=== PATIENT | male | born 1970 | race African-American/Black ===

== ENCOUNTER 2018-11-29 19:45 | Emergency (ER) | payer MEDICAID, OTHER ==
[~2018-11-29] VITALS: Ht 185.4 cm; Wt 74.8 kg
--- NOTE | 2018-11-29 20:37 | NUR ---
BIBSELF C/O DIFFICULTY BREATHING X1 WEEK. +CHEST TIGHTNESS. HX INDIRA USES NEB AT HOME, RAN OUT OF MEDICINE. NO OTHER COMPLAINTS AT THIS TIME. ER BED 7, MADE COMFORTABLE AND READY FOR EVAL.
[2018-11-29] MEDS ORDERED: ALBUTEROL FS 2.5 MG/3 ML VIAL.NEB ONE (20:54)
[2018-11-29] MEDS ORDERED: IPRATROPIUM NEB FS 0.5 MG/2.5 ML AMPUL.NEB ONE (20:54)
[2018-11-29] MEDS ORDERED: IPRATROPIUM NEB FS 0.5 MG/2.5 ML AMPUL.NEB NEB ONE (21:00)
[2018-11-29] MEDS ORDERED: predniSONE 20 MG TABLET PO ONE (21:00)
[2018-11-29] MEDS ORDERED: ALBUTEROL FS 2.5 MG/3 ML VIAL.NEB NEB ONE (21:00)
[2018-11-29] MEDS ORDERED: predniSONE 20 MG TABLET ONE (21:22)
[2018-11-29] MEDS ORDERED: IBUPROFEN 600 MG TABLET PO ONE ×2 (21:53→22:00)
--- NOTE | 2018-11-29 21:56 | NUR ---
Patient discharged to home in stable condition. Written and verbal after care instructions given. Patient verbalizes understanding of instruction.
[2018-11-29 22:09] VITALS: BP 141/96
== END 2018-11-29 21:56 | disposition home or self-care (01) ==
LOC: ER 19:47
DX: J45.901 Unspecified asthma with (acute) exacerbation (principal); M54.5 Low back pain; Z98.890 Other specified postprocedural states
CPT/HCPCS: 94640; 99283; J7512

== ENCOUNTER 2019-12-21 01:06 | Emergency (ER) | payer SELFPAY ==
[~2019-12-21] VITALS: Ht 185.4 cm; Wt 81.6 kg
--- NOTE | 2019-12-21 01:29 | NUR ---
PT PRESENTED TO THE ER WITH A C/O MIGRAINE [place] AND ASTHMA ATTACK. PT AMBULATED TO ER 6 WITH A SLOW STEADY GAIT. PT STATED THAT HIS MIGRAINE IS BAD BECAUSE HE "OVERUSED HIS INHALER". PT HAS WHEEZES ON THE LEFT AND DIMINISHED BS ON THE RIGHT. PT IS TRIPODING AND SATURATING AT 94% ON RA. OVERHEAD LIGHTS WERE TURNED OFF AND PT WAS PLACED ON THE MONITOR AND CONTINUOUS PULSE OX. PT REC'D WARM BLANKETS AND HOB IS AT 45 DEGREES.
--- NOTE | 2019-12-21 01:43 | NUR ---
DR MARROQUIN IS AT THE BEDSIDE.
[2019-12-21] MEDS ORDERED: ALBUTEROL FS 2.5 MG/3 ML VIAL.NEB NEB ONE ×2 (02:00→04:00)
[2019-12-21] MEDS ORDERED: IBUPROFEN 400 MG TABLET PO ONE (02:00)
[2019-12-21] MEDS ORDERED: ONDANSETRON 4 MG TAB.RAPDIS SL ONE (02:00)
[2019-12-21] MEDS ORDERED: HYDROMORPHONE 1 MG/1 ML DISP.SYRIN IM ONE (02:00)
[2019-12-21] MEDS ORDERED: IPRATROPIUM NEB FS 0.5 MG/2.5 ML AMPUL.NEB NEB ONE (02:00)
[2019-12-21] MEDS ORDERED: LORAZEPAM 1 MG TABLET PO ONE (02:00)
[2019-12-21] MEDS ORDERED: DEXAMETHASONE SOD PHOSPHATE 10 MG/ML VIAL IM ONE (02:00)
[2019-12-21] MEDS ORDERED: IPRATROPIUM NEB FS 0.5 MG/2.5 ML AMPUL.NEB ONE (02:01)
[2019-12-21] MEDS ORDERED: ALBUTEROL FS 2.5 MG/3 ML VIAL.NEB ONE ×2 (02:01→03:46)
[2019-12-21] MEDS ORDERED: HYDROMORPHONE 1 MG/1 ML DISP.SYRIN ONE (02:03)
[2019-12-21] MEDS ORDERED: DEXAMETHASONE SOD PHOSPHATE 10 MG/ML VIAL ONE (02:03)
[2019-12-21] MEDS ORDERED: IBUPROFEN 400 MG TABLET ONE (02:03)
[2019-12-21] MEDS ORDERED: LORAZEPAM 1 MG TABLET ONE (02:03)
[2019-12-21] MEDS ORDERED: ONDANSETRON 4 MG TAB.RAPDIS ONE (02:04)
--- NOTE | 2019-12-21 02:05 | NUR ---
BREATHING TX STARTED.
--- NOTE | 2019-12-21 02:05 | NUR ---
PT REC'D MEDICATION ORDERED.
--- NOTE | 2019-12-21 03:30 | NUR ---
PT STATED THAT HE WANTED ANOTHER BREATHING TX AND TO WAIT A LITTLE BIT AFTERWARDS. NOTIFIED.
--- NOTE | 2019-12-21 03:49 | NUR ---
PT REC'D A BREATHING TX.
--- NOTE | 2019-12-21 04:05 | NUR ---
BREATHING TX FINISHED.
--- NOTE | 2019-12-21 04:46 | NUR ---
PT APPEARS TO BE SLEEPING SOUNDLY. VSS.
--- NOTE | 2019-12-21 04:54 | NUR ---
Patient discharged to home in stable condition. Written and verbal after care instructions given. Patient verbalizes understanding of instruction AND RX. PT ASKED IF HE COULD HAVE "10 MINS TO GATHER HIMSELF".PT'S O2 SAT WAS 97% ON RA. PT'S VSS. PT AMBULATED TO THE BATHROOM WITH A STEADY GAIT. PT THEN AMBULATED BACK TO ER 6, COLLECTED HIS BELONGINGS AND LEFT. VSS. PT STATED THAT SOMEONE WAS GOING TO COLLECT HIM AND TAKE HIM HOME.
--- NOTE | 2019-12-21 05:05 | NUR ---
PT RETURNED TO THE NURSE'S STATION AND ASKED WHERE THE RX FOR ATIVAN WAS. PT WAS SHOWED WHERE THE PRESCRIPTIONS WERE. PT THEN ASKED FOR ANOTHER PRESCRIPTION FOR ALBUTEROL NEB SOLUTION. DR MARROQUIN SPOKE TO THE PT AND A NEW RX WAS GIVEN TO THE PT. PT AMBULATED OUT WITH A STEADY GAIT.
[2019-12-21 05:48] VITALS: BP 135/93
== END 2019-12-21 05:50 | disposition home or self-care (01) ==
LOC: ER 01:06
DX: J98.01 Acute bronchospasm (principal); G43.909 Migraine, unspecified, not intractable, without status migrainosus; F41.9 Anxiety disorder, unspecified; M79.7 Fibromyalgia; M81.0 Age-related osteoporosis without current pathological fracture; G47.00 Insomnia, unspecified; Z98.890 Other specified postprocedural states; Z60.2 Problems related to living alone; Z87.891 Personal history of nicotine dependence
CPT/HCPCS: 94640 ×2; 94799; 96372 ×2; 99285; J1100; J1170; Q0162

== ENCOUNTER 2019-12-23 00:18 | Emergency (ER) | payer SELFPAY ==
[~2019-12-23] VITALS: Ht 185.4 cm; Wt 81.6 kg
--- NOTE | 2019-12-23 00:43 | NUR ---
RT CALLED FOR BREATHING TREATMENT
[2019-12-23] MEDS ORDERED: ALBUTEROL FS 2.5 MG/0.5 ML VIAL.NEB NEB ONE (01:00)
[2019-12-23] MEDS ORDERED: ALBUTEROL FS 2.5 MG/0.5 ML VIAL.NEB ONE (01:06)
--- NOTE | 2019-12-23 01:34 | NUR ---
AWAITING BREATHING TREATMENT TO FINISH
[2019-12-23] MEDS ORDERED: ACETAMINOPHEN ES 500 MG TABLET ONE (01:43)
--- NOTE | 2019-12-23 01:50 | NUR ---
Patient discharged to home in stable condition. Written and verbal after care instructions given. Patient verbalizes understanding of instruction.
[2019-12-23] MEDS ORDERED: ACETAMINOPHEN 325 MG TABLET PO ONE (02:00)
[2019-12-23 02:35] VITALS: BP 123/74
== END 2019-12-23 01:35 | disposition home or self-care (01) ==
LOC: ER 00:18
DX: J45.909 Unspecified asthma, uncomplicated (principal); M79.7 Fibromyalgia; G43.909 Migraine, unspecified, not intractable, without status migrainosus; G47.00 Insomnia, unspecified; Z96.649 Presence of unspecified artificial hip joint; Z98.890 Other specified postprocedural states; Z60.2 Problems related to living alone
CPT/HCPCS: 94799-TC

== ENCOUNTER 2020-01-14 17:36 | Emergency (ER) | payer SELFPAY ==
[~2020-01-14] VITALS: Ht 185.4 cm; Wt 86.2 kg
--- NOTE | 2020-01-14 18:00 | NUR ---
asthma attack since last night, "i have chest tightness". PT AAOX4, VSS, RR EVEN & UNLABORED. DENIES CP, SOB, DIZZINESS, N/V, WEAKNESS AT THIS TIME. AWAITING EVAL BY [facility]. WILL CONT TO MONITOR.
[2020-01-14] MEDS ORDERED: DEXAMETHASONE SOD PHOSPHATE 10 MG/ML VIAL ONE (18:16)
[2020-01-14] MEDS: DEXAMETHASONE SOD PHOSPHATE 4 MG/ML VIAL IM ONE (18:24)
--- NOTE | 2020-01-14 19:23 | NUR ---
Patient discharged to home in stable condition. Written and verbal after care instructions given. Patient verbalizes understanding of instruction.
[2020-01-14 19:24] VITALS: BP 120/78
== END 2020-01-14 19:24 | disposition home or self-care (01) ==
LOC: ER 17:36
DX: J45.909 Unspecified asthma, uncomplicated (principal); Z96.649 Presence of unspecified artificial hip joint; F17.200 Nicotine dependence, unspecified, uncomplicated; M79.7 Fibromyalgia; F41.9 Anxiety disorder, unspecified; Z20.828 Contact with and (suspected) exposure to other viral communicable diseases
CPT/HCPCS: 71045; 96372; 99284; C9803; J1100; U0003

== ENCOUNTER 2020-01-29 10:02 | Emergency (ER) | payer BC, SELFPAY ==
[~2020-01-29] VITALS: Ht 185.4 cm; Wt 83.9 kg
--- NOTE | 2020-01-29 10:13 | NUR ---
came in for chest pain, sharp, since friday 01/12 pain scale, radiating to left arm. to er bed 10, hooked to monitor, changed to hosp gown, warm blanket provided, patient aao X 4, breathing even and unlabored. Dr Jackson at bedside
--- NOTE | 2020-01-29 10:32 | NUR ---
mechatronics technologist at bedside
[2020-01-29 10:38] LABS: BASOPHILS # (AUTO) 0.1 /CMM (0.0-0.2); BASOPHILS % (AUTO) 0.8 % (0.0-2.0); EOSINOPHILS % (AUTO) 2.8 % (0.0-6.0); HEMATOCRIT 44 % (39-51); HEMOGLOBIN 14.3 g/dL (13.5-17.5); LYMPHOCYTES # (AUTO) 1.3 /CMM (0.8-4.8); LYMPHOCYTES % (AUTO) 13.4 % (20.0-44.0); MEAN CORPUSCULAR HGB CONC 33 g/dl (31.0-36.0); MEAN CORPUSCULAR VOLUME 89 fL (80-96); MONOCYTES # (AUTO) 0.6 /CMM (0.1-1.30); MONOCYTES % (AUTO) 5.9 % (2.0-12.0); NEUTROPHILS # (AUTO) 7.2 /CMM (1.8-8.9); NEUTROPHILS % (AUTO) 77.1 % (43.0-81.0); PLATELET COUNT (AUTO) 230 /CMM (150-450); RED BLOOD CELL COUNT(AUTO) 4.88 MIL/uL (4.5-6.0); WHITE BLOOD COUNT (AUTO) 9.4 K/uL (4.3-11.0)
[2020-01-29 10:50] LABS: CALCIUM, SERUM 9.1 mg/dL (8.5-10.1); CARBON DIOXIDE 29 mmol/L (21-32); CHLORIDE 101 mmol/L (98-107); CREATININE 0.9 mg/dL (0.6-1.3); GLUCOSE 100 mg/dL (74-106); POTASSIUM 3.8 mmol/L (3.5-5.1); SODIUM SERUM 138 mmol/L (136-145); UREA NITROGEN, BLOOD 16 mg/dL (7-18)
[2020-01-29 11:04] LABS: ALANINE AMINOTRANSFERASE 61 U/L (12-78); ALBUMIN 3.5 g/dL (3.4-5.0); ALKALINE PHOSPHATASE 77 U/L (46-116); ASPARTATE AMINOTRANSFERASE 37 U/L (15-37); B-TYPE NATRIURETIC PEPTIDE 96 PG/ML (0-125); BILIRUBIN,DIRECT 0.1 mg/dL (0.0-0.2); BILIRUBIN,TOTAL 0.4 mg/dL (0.2-1.0); TOTAL PROTEIN, SERUM 6.6 g/dL (6.4-8.2)
[2020-01-29] MEDS ORDERED: methylPREDNISolone SOD SUCC 125 MG/2ML VIAL ONE (12:07)
--- NOTE | 2020-01-29 12:12 | NUR ---
MEDICATED PER ERMD ORDER, PT SUSY WELL
[2020-01-29] MEDS ORDERED: ALBUTEROL FS 2.5 MG/3 ML VIAL.NEB ONE (12:25)
--- NOTE | 2020-01-29 12:29 | NUR ---
rt at bedside for breathing tx
[2020-01-29] MEDS ORDERED: methylPREDNISolone SOD SUCC 125 MG/2ML VIAL IV ONE (12:30)
[2020-01-29] MEDS ORDERED: ALBUTEROL FS 2.5 MG/3 ML VIAL.NEB NEB ONE (12:30)
--- NOTE | 2020-01-29 13:09 | NUR ---
IV removed. Catheter intact and site benign. Pressure and 4x4 applied to site. No bleeding noted.Patient discharged to home in stable condition. Written and verbal after care instructions given. Patient verbalizes understanding of instruction.
[2020-01-29 13:10] VITALS: BP 127/80
== END 2020-01-29 13:11 | disposition home or self-care (01) ==
LOC: ER 10:09
DX: R09.1 Pleurisy (principal); G43.909 Migraine, unspecified, not intractable, without status migrainosus; J45.909 Unspecified asthma, uncomplicated; M81.0 Age-related osteoporosis without current pathological fracture; F41.9 Anxiety disorder, unspecified; G47.00 Insomnia, unspecified; F17.200 Nicotine dependence, unspecified, uncomplicated; Z98.890 Other specified postprocedural states; Z60.2 Problems related to living alone
CPT/HCPCS: 36415; 71045; 80048; 80076; 80305; 83880; 84484; 85025; 85730; 93005 ×3; 94640; 96374; 99285; J2930